=== PATIENT | male | born 1960 | race American Indian/Alaskan Native ===

== ENCOUNTER 2021-11-16 19:08 | Emergency (ER) | payer OTHER, BC ==
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
[2021-11-16] MEDS: HYDROcodone/ACETAMINOPHEN 5-325 MG TAB PO ONE (22:40)
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
[2021-11-16 23:50] VITALS: BP 146/69
== END 2021-11-16 23:41 | disposition home or self-care (01) ==
LOC: EDBD → ED 19:08
DX: S16.1XXA Strain of muscle, fascia and tendon at neck level, initial encounter (principal); S39.012A Strain of muscle, fascia and tendon of lower back, initial encounter; Z79.899 Other long term (current) drug therapy; V87.7XXA Person injured in collision between other specified motor vehicles (traffic), initial encounter; Y93.89 Activity, other specified; Y92.488 Other paved roadways as the place of occurrence of the external cause; Y99.8 Other external cause status
CPT/HCPCS: 72040; 72100; 99283

== ENCOUNTER 2021-11-22 09:20 | Inpatient (IN) | payer BC, OTHER ==
--- NOTE | 2021-11-22 09:51 | Cat Scan Report ---
CT HEAD WITHOUT CONTRAST INDICATION / CLINICAL INFORMATION: CODE STROKE CALL [phone]. TECHNIQUE: Axial imaging performed from the skull apex through the skull base without the use of cont rast. Sagittal and coronal reformatted images. All CT scans at this location are performed using CT dose reduction for ALARA by means of automated exposure control. COMPARISON: None available FINDINGS: CEREBRAL PARENCHYMA: No acute parenchymal abnormality is detected. The hdez-white interface is preser manuel. There appear to be 2 small chronic cortical infarcts on the right side involving the precentral and postcentral gyri measuring up to 1 cm. No definite acute ischemia. Minimal chronic white matter c hanges are noted bilaterally. The proximal left MCA is slightly hyperdense on axial image 15 but this is thought to be secondary to streak artifact at this level. HEMORRHAGE: None. EXTRA-AXIAL SPACES: Normal in size and morphology for the patient's age. VENTRICULAR SYSTEM: Normal in size and morphology for the patient's age. MIDLINE SHIFT OR HERNIATION: None. CEREBELLUM / BRAINSTEM: No significant abnormality. CALVARIUM: No significant abnormality. ORBITS: Normal as visualized. PARANASAL SINUSES / MASTOID AIR CELLS: Normal as visualized. SOFT TISSUES of HEAD: No significant abnormality. ADDITIONAL FINDINGS: None. IMPRESSION: No evidence for hemorrhage or acute parenchymal abnormality. Small chronic cortical infarcts in the r ight MCA distribution involving the precentral and postcentral gyri as described. Questionable minimal hyperdensity of the proximal left MCA on image 14 is thought to be artifactual. If further evaluation is needed CTA head could be obtained. Please correlate with the patient's clini jean presentation. CODE STROKE: Time of Communication (POWDER MIXER/CDT): 0844 hours Licensed Practitioner Receiving Report: Dr. English Signer Name: Thomas Canseco Jr, MD Signed: 11/22/2021 9:47 AM Workstation Name: [id number]
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
--- NOTE | 2021-11-22 10:30 | Cat Scan Report ---
CT angio neck, CT angio head HISTORY: cva 100 ML OMNI 350 COMPARISON: CT head from earlier same day TECHNIQUE: CTA of the neck and head is performed after IV contrast. 3-D/MIP reformats were postproces sed. Percentage stenosis is determined by direct quantitative measurements of diseased internal bernardo tid artery diameter compared with normal distal internal carotid artery reference segments or by crit eria similar to NASCET where applicable. All CT scans at this location are performed using CT dose re duction for ALARA by means of automated exposure control. FINDINGS: CTA NECK: Aortic arch: 2 vessel aortic arch, normal variant. Cervical vertebral arteries: No occlusion or hemodynamically significant stenosis. Common Carotid arteries: No occlusion or hemodynamically significant stenosis. Internal carotid arteries: No occlusion or hemodynamically significant stenosis. CTA HEAD: Intracranial internal carotid arteries: High-grade stenosis near occlusion in the cavernous segment o f the right internal carotid artery. Anterior cerebral arteries: No occlusion or significant stenosis. Middle cerebral arteries: No occlusion or significant stenosis. Intracranial vertebral arteries: No occlusion or significant stenosis. Basilar artery: No occlusion or significant stenosis. Posterior cerebral arteries: No occlusion or significant stenosis. No aneurysm. Additional findings: None. IMPRESSION: 1. CTA NECK: No occlusion or significant stenosis of the carotid or vertebral arteries. 2. CTA HEAD: Atherosclerosis with near occlusion of the cavernous segment of the right internal carot id artery. Signer Name: Amor Best MD Signed: 11/22/2021 10:25 AM Workstation Name: [id number]
--- NOTE | 2021-11-22 10:40 | XRay Report ---
XR chest 1V ap INDICATION / CLINICAL INFORMATION: Stroke COMPARISON: None available. FINDINGS: SUPPORT DEVICES: None. HEART / MEDIASTINUM: No significant abnormality. LUNGS / PLEURA: Lungs are clear. Costophrenic sulci are sharp. No pneumothorax. ADDITIONAL FINDINGS: No significant additional findings. IMPRESSION: 1. No acute findings. Signer Name: Amor Best MD Signed: 11/22/2021 10:36 AM Workstation Name: [id number]
[2021-11-22 10:59] LABS: Basophils # (Auto) 0.1 K/mm3 (0.0-0.1); Basophils % (Auto) 0.9 % (0.0-1.8); Eosinophils # (Auto) 0.1 K/mm3 (0.0-0.4); Eosinophils % (Auto) 1.7 % (0.0-4.3); Hematocrit 41.5 % (35.5-45.6); Hemoglobin 13.9 gm/dl (11.8-15.2); Lymphocytes # (Auto) 1.7 K/mm3 (1.2-5.4); Lymphocytes % (Auto) 25.4 % (13.4-35.0); Mean Corpuscular HGB Conc 33 % (32-34); Mean Corpuscular Volume 79 fl (84-94); Monocytes # (Auto) 0.8 K/mm3 (0.0-0.8); Monocytes % (Auto) 11.4 % (0.0-7.3); Platelet Count 209 K/mm3 (140-440); Red Blood Count 5.24 M/mm3 (3.65-5.03); Red Cell Distribution Width 14.3 % (13.2-15.2)
[2021-11-22 11:08] LABS: Partial Thromboplastin Time 28.1 Sec. (24.2-36.6)
[2021-11-22 11:13] LABS: INR 1.03 (0.87-1.13)
[2021-11-22 11:18] LABS: Bilirubin,Urine NEG (Negative); Blood,Urine NEG (Negative); Color,Urine Yellow (Yellow); Mucus,Urine FEW /HPF; Protein,Urine <15 mg/dL mg/dL (Negative); Urobilinogen,Urine < 2.0 mg/dL (<2.0)
[2021-11-22] MEDS ORDERED: HYDROmorphone 1 MG/1 ML INJ IV PRN (11:18)
[2021-11-22] MEDS ORDERED: METOCLOPRAMIDE 10 MG TAB PO PRN (11:18)
[2021-11-22] MEDS ORDERED: oxyCODONE /ACETAMINOPHEN 5-325MG TAB PO PRN (11:18)
[2021-11-22] MEDS ORDERED: PROMETHAZINE 25 MG RECT SUPP PR PRN (11:18)
[2021-11-22] MEDS ORDERED: MAGNESIUM HYDROXIDE (MOM) ORAL LIQD UDC PO PRN (11:18)
[2021-11-22] MEDS ORDERED: ONDANSETRON 4 MG/2 ML INJ IV PRN (11:18)
[2021-11-22] MEDS ORDERED: ACETAMINOPHEN 325 MG TAB PO PRN (11:18)
[2021-11-22] MEDS ORDERED: ALBUTEROL 2.5 MG/3 ML NEBU IH PRN (11:18)
[2021-11-22] MEDS ORDERED: CYCLOBENZAPRINE 10 MG TAB PO PRN (11:20)
--- NOTE | 2021-11-22 11:21 | History and Physical Report ---
History of Present Illness Chief complaint: My left side is weak and my speech is slurred History of present illness: 61 YO male with DM, Obesity Hypoventilation Syndrome, Metabolic Syndrome presents ED for evaluation. Patient reports "my left side is numb and my speech is slurred". Patient states that he was in his usual state of health at bedtime around 2200 hrs. Patient states that he awoke from sleep around 0500 hrs. and was found to have left-sided weakness as well as slurred speech. EMS was notified and upon arrival the patient was found to be in distress with a focal neurologic deficit. A code stroke was called and the patient was transported to [facility] for further care and evaluation of the aforementioned symptoms. The patient was seen and evaluated in the emergency department. All lab and imaging studies reviewed. Patient found to have a focal neurologic deficit as well as concomitant systems consistent with CVA. The patient was admitted to telemetry and initiated on CVA protocol. Telemetry neurology was consulted. Patient has fever, chills, chest pain, palpitation, productive cough, skin rash, trauma, recent ill contact, known exposure to COVID-19. No prior admission for review. All medication listed at time of admission has been reconciled. Advanced care planning conducted in ED. Past History Past Medical History: diabetes, other (See HPI) Past Surgical History: No surgical history, Other (Reviewed) Social history: , lives with family. denies: smoking, alcohol abuse, prescription drug abuse Family history: diabetes, hypertension Medications and Allergies Allergies Allergy/AdvReac Type Severity Reaction Status Date / Time No Known Allergies Allergy Verified 11/22/21 09:27 Home Medications Medication Instructions Recorded Confirmed Last Taken Type Acetaminophen [Acetaminophen TAB] 1,000 mg PO Q6HR PRN #30 tablet 11/16/21 11/22/21 Unknown Rx Cyclobenzaprine [Flexeril] 10 mg PO BID PRN #10 tab 11/16/21 11/22/21 11/21/21 22:00 Rx Menthol/Camphor [[place] 1 applicatio TP Q6H PRN #1 tube 11/16/21 11/22/21 Unknown Rx Ointment] Insulin Glargine [Lantus VIAL] 18 unit SQ QAM 11/22/21 11/22/21 11/21/21 22:00 History Insulin Lispro [Humalog] 1 - 6 unit SQ QID 11/22/21 11/22/21 Unknown History Lancets [Accu-Chek Softclix] TP TID 11/22/21 Unknown History Rabeprazole Sodium [Aciphex] 20 mg PO 11/22/21 11/21/21 07:00 History Active Meds: Active Medications Acetaminophen (Acetaminophen 325 Mg Tab) 650 mg PO Q4H PRN PRN Reason: Pain, Mild (1-3) Albuterol (Albuterol 2.5 Mg/3 Ml Nebu) 2.5 mg IH Q3HRT PRN PRN Reason: Shortness Of Breath Aspirin (Aspirin 325 Mg Tab) 325 mg PO QDAY JO ANN Atorvastatin Calcium (Atorvastatin 40 Mg Tab) 40 mg PO QHS JO ANN Bisacodyl (Bisacodyl 10 Mg Rect Supp) 10 mg HI QDAY PRN PRN Reason: Constipation Cyclobenzaprine HCl (Cyclobenzaprine 10 Mg Tab) 10 mg PO BID PRN PRN Reason: Muscle Spasm Hydromorphone HCl (Hydromorphone 1 Mg/1 Ml Inj) 0.5 mg IV Q23H PRN PRN Reason: Pain , Severe (7-10) Magnesium Hydroxide (Magnesium Hydroxide (Mom) Oral Liqd Udc) 30 ml PO Q4H PRN PRN Reason: Constipation Metoclopramide HCl (Metoclopramide 10 Mg Tab) 10 mg PO Q6H PRN PRN Reason: Nausea And Vomiting Miscellaneous Medication (Rabeprazole Sodium [Aciphex]) 20 mg PO DAILY ON LICENSE OF [facility] Ondansetron HCl (Ondansetron 4 Mg/2 Ml Inj) 4 mg IV Q8H PRN PRN Reason: Nausea And Vomiting Oxycodone/Acetaminophen (Oxycodone /Acetaminophen 5-325mg Tab) 1 tab PO Q16H PRN PRN Reason: Pain, Moderate (4-6) Promethazine HCl (Promethazine 25 Mg Rect Supp) 25 mg HI Q6H PRN PRN Reason: Nausea And Vomiting Sodium Chloride (Sodium Chloride 0.9% 10 Ml Flush Syringe) 10 ml INJ PRN PRN PRN Reason: LINE FLUSH Review of Systems Constitutional: no weight loss, no fever Ears, nose, mouth and throat: no ear pain, no tinnitis, no decreased hearing, no nose pain, no sinus pressure Cardiovascular: no chest pain, no orthopnea, no edema, no lightheadedness Respiratory: no cough, no cough with sputum, no excessive sputum, no hemoptysis Gastrointestinal: no abdominal pain, no nausea, no diarrhea, no constipation, no change in bowel habits, no hematemesis Genitourinary Male: no dysuria, no hematuria, no discharge, no nocturia, no er ectile dysfunction Rectal: no pain, no bleeding Musculoskeletal: no neck stiffness, no neck pain Integumentary: no rash, no jaundice Neurological: lack of coordination, change in speech, gait dysfunction, motor disturbance, no head injury, no transient paralysis, no paralysis, no seizures, no syncope Psychiatric: no anxiety, no memory loss, no change in sleep habits, no sleep disturbances, no hypersomnia, no change in libido, no suicidal ideation, no disorientation Endocrine: no cold intolerance, no heat intolerance, no polyphagia, no excessive thirst, no polydipsia, no excessive sweating, no flushing Hematologic/Lymphatic: no easy bruising, no easy bleeding Allergic/Immunologic: no urticaria, no allergic rhinitis Exam - Constitutional Vitals: Temp Pulse Resp BP Pulse Ox 98.6 F 98 H 16 156/79 97 11/22/21 10:40 11/22/21 10:40 11/22/21 10:27 11/22/21 10:40 11/22/21 10:40 General appearance: Present: mild distress - EENT Eyes: Present: PERRL ENT: hearing intact, clear oral mucosa - Neck Neck: Present: supple, normal ROM - Respiratory Respiratory effort: normal Respiratory: bilateral: CTA - Cardiovascular Heart Sounds: Present: S1 & S2. Absent: rub, click - Extremities Extremities: pulses symmetrical, No edema Peripheral Pulses: within normal limits - Abdominal General gastrointestinal: Present: soft, non-tender, non-distended, normal bowel sounds Male genitourinary: Present: normal - Integumentary Integumentary: Present: clear, warm, dry - Musculoskeletal Musculoskeletal: left sided weakness - Psychiatric Psychiatric: appropriate mood/affect, intact judgment & insight - Neurologic Neurologic: CNII-XII intact, moves all extremities, no gait normal Results - Labs CBC & Chem 7: 11/22/21 10:20 11/22/21 10:20 Labs: Abnormal lab results 11/22/21 11/22/21 Range/Units 10:20 10:32 RBC 5.24 H (3.65-5.03) M/mm3 MCV 79 L (84-94) fl MCH 27 L (28-32) pg [place] % (Auto) 11.4 H (0.0-7.3) % POC Glucose 106 H (70-105) mg/dL Assessment and Plan - Patient Problems (1) CVA (cerebral vascular accident) Current Visit: Yes Status: Acute Plan to address problem: CVA protocol: CT head, neuro check, seizure precautions, aspiration precautions, lipid panel, statin therapy, telemetry neurology consulted, echocardiogram, carotid Doppler, dual antiplatelet therapy, risk factor reduction, (2) Obesity hypoventilation syndrome Current Visit: Yes Status: Acute Plan to address problem: Balanced diet, increase physical activity discharge, outpatient pulmonary follow-up for sleep study. (3) Metabolic syndrome Current Visit: Yes Status: Acute Plan to address problem: Supportive care, weight factor reduction, low-cholesterol diet. (4) DVT prophylaxis Current Visit: Yes Status: Acute Plan to address problem: SCDs bilateral lower extremities while in bed (5) Advance care planning Current Visit: Yes Status: Acute Plan to address problem: Disease education conducted, care plan discussed, diagnoses discussed, prognosis discussed, patient is full code, patient knowledges understanding and agreement with care plan, +30 minutes.
[2021-11-22 11:22] LABS: Alanine Aminotransferase 24 units/L (7-56); Albumin 3.9 g/dL (3.9-5); BUN/Creatinine Ratio 11; Blood Urea Nitrogen 10 mg/dL (9-20); Calcium 9.3 mg/dL (8.4-10.2); Hemolysis Index 20
[2021-11-22] MEDS ORDERED: DEXTROSE 50% IN WATER (25GM) 50 ML SYRINGE IV PRN (11:22)
[2021-11-22 11:30] LABS: Amphetamine Screen,Urine Negative; Benzodiazepines Screen,Urine Negative; Cannabinoid Screen,Urine Negative; Cocaine Screen,Urine Negative; Methadone Screen,Urine Negative; Opiate Screen,Urine Negative
[2021-11-22] MEDS: INSULIN LISPRO 100 UNIT/ML SUB-Q SCH ×2 (13:40→18:58)
[2021-11-22] MEDS: PANTOPRAZOLE 40 MG TAB PO SCH (13:57)
--- NOTE | 2021-11-22 13:58 | Vascular Lab Report ---
DUPLEX DOPPLER ULTRASOUND CAROTID, BILATERAL INDICATION / CLINICAL INFORMATION: stroke. COMPARISON: CTA neck performed today. FINDINGS: RIGHT CAROTID: Moderate intimal thickening. Mild atherosclerotic plaque. Dampened ICA velocities. - PLAQUE ESTIMATE (%): < 50% - CCA velocity: 118 cm/sec. - ICA peak systolic velocity: 50 cm/sec. - ICA/CCA PSV Ratio: Less than 2. Right Vertebral Artery: Antegrade flow. LEFT CAROTID: Mild atherosclerotic plaque. Moderate intimal thickening. - PLAQUE ESTIMATE (%): < 50% - CCA velocity: 121 cm/sec. - ICA peak systolic velocity: 121 cm/sec. - ICA/CCA PSV Ratio: 1.0 Left Vertebral Artery: Antegrade flow. IMPRESSION: 1. Right Internal Carotid Artery: Dampened velocities consistent with stenosis distal to visualized p ortions of ICA, as seen on CT performed today. 2. Left Internal Carotid Artery: Less than 50% diameter stenosis. Velocity criteria are extrapolated from diameter data as defined by the Society of Radiologists in Ul trasound Consensus Conference, Radiology 2003; 229;340-346. NO STENOSIS (NORMAL) - Plaque = none; ICA PSV < 125 cm/sec; ICA/CCA PSV Ratio < 2.0 <50% STENOSIS - Plaque < 50%; ICA PSV < 125 cm/sec; ICA/CCA PSV Ratio < 2.0 50-69% STENOSIS - Plaque > 50%; ICA PSV = 125-230 cm/sec; ICA/CCA PSV Ratio = 2.0-4.0 >70% BUT <100% STENOSIS - Plaque > 50%; ICA PSV > 230 cm/sec; ICA/CCA PSV Ratio > 4.0 NEAR OCCLUSION - Plaque = visible lumen; ICA PSV = high/low/none; ICA/CCA PSV Ratio = variable TOTAL OCCLUSION - Plaque = no lumen; ICA PSV = none; ICA/CCA PSV Ratio = N/A Scribed by: Hortencia Coello RDMS, EFRAÍNT, CRISTINA Scribed: 11/22/2021 12:25 PM I have reviewed the images, agree with this report, and edited this report as needed. Signer Name: Ish Amaya MD Signed: 11/22/2021 1:54 PM Workstation Name: [id number]
[2021-11-22] MEDS: CLOPIDOGREL 75 MG TAB PO SCH (16:17)
--- NOTE | 2021-11-22 20:37 | Cat Scan Report ---
CT BRAIN: 11/22/2021, 1952 hours INDICATION / CLINICAL INFORMATION: stroke. Altered mental status COMPARISON: CT brain 11/22/2021, 0912 hours FINDINGS: BRAIN/INTRACRANIAL STRUCTURES: There is a 3.5 cm area of decreased attenuation present in the right c entral parietal cortex, consistent with evolving ischemic injury in the territory of a branch vessel of the distal right MCA. These changes were not visible on the earlier exam. There is no evidence of associated hemorrhage. No other areas of ischemic change are noted. Normal age-related atrophic changes are present. There is no evidence of hemorrhage or mass. There are no abnormal extra-axial fluid collection. EXTRACRANIAL STRUCTURES: Unremarkable. IMPRESSION: Involving right partial MCA distribution infarct. No evidence of hemorrhage. All CT scans at this location are performed using dose reduction to ALARA by means of automated expos ure control. Signer Name: Janusz Romero MD Signed: 11/22/2021 8:32 PM Workstation Name: [id number]
[2021-11-23] MEDS ORDERED: RABEPRAZOLE SODIUM 20 MG PO SCH (10:00)
[2021-11-23] MEDS ORDERED: CLOPIDOGREL 75 MG TAB PO SCH (10:00)
[2021-11-23] MEDS ORDERED: ASPIRIN 325 MG TAB PO SCH (10:00)
--- NOTE | 2021-11-23 12:24 | Consultation ---
History of Present Illness Consult date: 11/23/21 Reason for Consult: new onset left side numbness and slurred speech History of present illness: My left side is weak and my speech is slurred History of present illness: 61 YO male with DM, Obesity Hypoventilation Syndrome, Metabolic Syndrome presents ED for evaluation. Patient reports "my left side is numb and my speech is slurred". Patient states that he was in his usual state of health at bedtime around 2200 hrs. Patient states that he awoke from sleep around 0500 hrs. and was found to have left-sided weakness as well as slurred speech. EMS was notified and upon arrival the patient was found to be in distress with a focal neurologic deficit. A code stroke was called and the patient was transported to [facility] for further care and evaluation of the aforementioned symptoms. The patient was seen and evaluated in the emergency department. All lab and imaging studies reviewed. Patient found to have a focal neurologic deficit as well as concomitant systems consistent with CVA. The patient was admitted to telemetry and initiated on CVA protocol. Telemetry neurology was consulted. Patient has fever, chills, chest pain, palpitation, productive cough, skin rash, trauma, recent ill contact, known exposure to COVID-19. No prior admission for review. All medication listed at time of admission has been reconciled. Advanced care planning conducted in ED. Neurology consulted today due to above NIH last night was #0 Ct brain initial is remarkable for possible remote right MCA infarct Ct repeat today showed possible evolving acute CVA right parietal region CTA showed almost complete occlusion right ICA at cavernous segment , -US carotid is <50% bilateral echo is with EF#60-65% with mild impaired relaxation Past History Past Medical History: diabetes, other (See HPI) hx of peripheral vascular disease s/p stent Past Surgical History: No surgical history, Other (Reviewed) Social history: , lives with family. denies: smoking, alcohol abuse, prescription drug abuse Family history: diabetes, hypertension Medications and Allergies Allergies Allergy/AdvReac Type Severity Reaction Status Date / Time No Known Allergies Allergy Verified 11/22/21 09:27 Home Medications Medication Instructions Recorded Confirmed Last Taken Type Acetaminophen [Acetaminophen TAB] 1,000 mg PO Q6HR PRN #30 tablet 11/16/21 11/22/21 Unknown Rx Cyclobenzaprine [Flexeril] 10 mg PO BID PRN #10 tab 11/16/21 11/22/21 11/21/21 22:00 Rx Menthol/Camphor [[place] 1 applicatio TP Q6H PRN #1 tube 11/16/21 11/22/21 Unknown Rx Ointment] Insulin Glargine [Lantus VIAL] 18 unit SQ QAM 11/22/21 11/22/21 11/21/21 22:00 History Insulin Lispro [Humalog] 1 - 6 unit SQ QID 11/22/21 11/22/21 Unknown History Lancets [Accu-Chek Softclix] TP TID 11/22/21 Unknown History Rabeprazole Sodium [Aciphex] 20 mg PO 11/22/21 11/21/21 07:00 History Active Meds: Active Medications Acetaminophen (Acetaminophen 325 Mg Tab) 650 mg PO Q4H PRN PRN Reason: Pain, Mild (1-3) Albuterol (Albuterol 2.5 Mg/3 Ml Nebu) 2.5 mg IH Q3HRT PRN PRN Reason: Shortness Of Breath Aspirin (Aspirin 325 Mg Tab) 325 mg PO QDAY JO ANN Atorvastatin Calcium (Atorvastatin 40 Mg Tab) 40 mg PO QHS JO ANN Bisacodyl (Bisacodyl 10 Mg Rect Supp) 10 mg [place] QDAY PRN PRN Reason: Constipation Cyclobenzaprine HCl (Cyclobenzaprine 10 Mg Tab) 10 mg PO BID PRN PRN Reason: Muscle Spasm Hydromorphone HCl (Hydromorphone 1 Mg/1 Ml Inj) 0.5 mg IV Q23H PRN PRN Reason: Pain , Severe (7-10) Magnesium Hydroxide (Magnesium Hydroxide (Mom) Oral Liqd Udc) 30 ml PO Q4H PRN PRN Reason: Constipation Metoclopramide HCl (Metoclopramide 10 Mg Tab) 10 mg PO Q6H PRN PRN Reason: Nausea And Vomiting Miscellaneous Medication (Rabeprazole Sodium [Aciphex]) 20 mg PO DAILY JO ANN Ondansetron HCl (Ondansetron 4 Mg/2 Ml Inj) 4 mg IV Q8H PRN PRN Reason: Nausea And Vomiting Oxycodone/Acetaminophen (Oxycodone /Acetaminophen 5-325mg Tab) 1 tab PO Q16H PRN PRN Reason: Pain, Moderate (4-6) Promethazine HCl (Promethazine 25 Mg Rect Supp) 25 mg OH Q6H PRN PRN Reason: Nausea And Vomiting Sodium Chloride (Sodium Chloride 0.9% 10 Ml Flush Syringe) 10 ml INJ PRN PRN PRN Reason: LINE FLUSH Review of Systems Constitutional: no weight loss, no fever Ears, nose, mouth and throat: no ear pain, no tinnitis, no decreased hearing, no nose pain, no sinus pressure Cardiovascular: no chest pain, no orthopnea, no edema, no lightheadedness Respiratory: no cough, no cough with sputum, no excessive sputum, no hemoptysis Gastrointestinal: no abdominal pain, no nausea, no diarrhea, no constipation, no change in bowel habits, no hematemesis Genitourinary Male: no dysuria, no hematuria, no discharge, no nocturia, no erectile dysfunction Rectal: no pain, no bleeding Musculoskeletal: no neck stiffness, no neck pain Integumentary: no rash, no jaundice Neurological: lack of coordination, change in speech, gait dysfunction, motor disturbance, no head injury, no transient paralysis, no paralysis, no seizures, no syncope Psychiatric: no anxiety, no memory loss, no change in sleep habits, no sleep disturbances, no hypersomnia, no change in libido, no suicidal ideation, no disorientation Endocrine: no cold intolerance, no heat intolerance, no polyphagia, no excessive thirst, no polydipsia, no excessive sweating, no flushing Hematologic/Lymphatic: no easy bruising, no easy bleeding Allergic/Immunologic: no urticaria, no allergic rhinitis Past History Past Medical History: diabetes, hypertension, hyperlipidemia, other (See HPI) Past Surgical History: No surgical history, Other (Reviewed) Social history: , lives with family. denies: smoking, alcohol abuse, prescription drug abuse Family history: diabetes, hypertension Medications and Allergies Allergies Allergy/AdvReac Type Severity Reaction Status Date / Time No Known Allergies Allergy Verified 11/23/21 10:35 Home Medications Medication Instructions Recorded Confirmed Last Taken Type Acetaminophen [Acetaminophen TAB] 1,000 mg PO Q6HR PRN #30 tablet 11/16/21 11/23/21 Unknown Rx Cyclobenzaprine [Flexeril] 10 mg PO BID PRN #10 tab 11/16/21 11/23/21 Unknown Rx Menthol/Camphor [[place] 1 applicatio TP Q6H PRN #1 tube 11/16/21 11/23/21 Unknown Rx Ointment] Insulin Glargine [Lantus VIAL] 18 unit SQ QAM 11/22/21 11/23/21 Unknown History Insulin Lispro [Humalog] 1 - 6 unit SQ QID 11/22/21 11/23/21 Unknown History Rabeprazole Sodium [Aciphex] 20 mg PO QDAY 11/22/21 11/23/21 Unknown History Olmesartan Medoxomil 40 mg PO QDAY 11/23/21 11/23/21 Unknown History Active Meds: Active Medications Acetaminophen (Acetaminophen 325 Mg Tab) 650 mg PO Q4H PRN PRN Reason: Pain, Mild (1-3) Albuterol (Albuterol 2.5 Mg/3 Ml Nebu) 2.5 mg IH Q3HRT PRN PRN Reason: Shortness Of Breath Aspirin (Aspirin 325 Mg Tab) 325 mg PO QDAY [facility] Atorvastatin Calcium (Atorvastatin 40 Mg Tab) 40 mg PO QHS [facility] Last Admin: 11/22/21 21:32 Dose: Not Given Bisacodyl (Bisacodyl 10 Mg Rect Supp) 10 mg OH QDAY PRN PRN Reason: Constipation Clopidogrel Bisulfate (Clopidogrel 75 Mg Tab) 75 mg PO QDAY [facility] Last Admin: 11/22/21 16:17 Dose: 75 mg Cyclobenzaprine HCl (Cyclobenzaprine 10 Mg Tab) 10 mg PO BID PRN PRN Reason: Muscle Spasm Dextrose (Dextrose 50% In Water (25gm) 50 Ml Syringe) 50 ml IV Q30MIN PRN; Protocol PRN Reason: Hypoglycemia Hydromorphone HCl (Hydromorphone 1 Mg/1 Ml Inj) 0.5 mg IV Q23H PRN PRN Reason: Pain , Severe (7-10) Last Admin: 11/23/21 04:16 Dose: 0.5 mg Insulin Human Lispro (Insulin Lispro 100 Unit/Ml) 0 unit SUB-Q [facility]; Protocol Last Admin: 11/22/21 18:58 Dose: Not Given Magnesium Hydroxide (Magnesium Hydroxide (Mom) Oral Liqd Udc) 30 ml PO Q4H PRN PRN Reason: Constipation Metoclopramide HCl (Metoclopramide 10 Mg Tab) 10 mg PO Q6H PRN PRN Reason: Nausea And Vomiting Ondansetron HCl (Ondansetron 4 Mg/2 Ml Inj) 4 mg IV Q8H PRN PRN Reason: Nausea And Vomiting Oxycodone/Acetaminophen (Oxycodone /Acetaminophen 5-325mg Tab) 1 tab PO Q16H PRN PRN Reason: Pain, Moderate (4-6) Last Admin: 11/22/21 13:59 Dose: 1 tab Pantoprazole Sodium (Pantoprazole 40 Mg Tab) 40 mg PO DAILY JO ANN Last Admin: 11/22/21 13:57 Dose: 40 mg Promethazine HCl (Promethazine 25 Mg Rect Supp) 25 mg OH Q6H PRN PRN Reason: Nausea And Vomiting Sodium Chloride (Sodium Chloride 0.9% 10 Ml Flush Syringe) 10 ml IV PRN PRN PRN Reason: LINE FLUSH Physical Examination - Vital Signs Vital Signs: Vital Signs Temp Pulse Resp BP Pulse Ox 98.6 F 106 H 16 156/79 99 11/22/21 10:27 11/22/21 10:27 11/22/21 10:27 11/22/21 10:27 11/22/21 10:27 - Constitutional General appearance: comfortable - EENT EENT: Present: PERRL, mucous membranes moist - Respiratory Respiratory: Present: lungs clear, rhonchi - Cardiovascular Cardiovascular: Present: regular rate, normal S1, normal S2 Extremities: Present: no peripheral edema bilatateraly, no clubbing, cyanosis - Gastrointestinal Gastrointestinal: Present: normoactive bowel sounds - Integumentary Integumentary: Present: normal - Neurologic Cranial nerve examination: PERRL, EOMI, facial droop, other (left visual field neglect , and left facial droop, sensation is intact) Speech examination: intact Sensorimotor examination: intact, hemiparesis Detailed motor examination: other (dense weakness left upper 1/5 , intact sensation and reflexes, left lower is 4/5 , gait not done) - Level of Consciousness 1a. Level of Consciousness: alert/keenly responsive - LOC Questions 1b. LOC Questions: answers both correctly - LOC Command 1c. LOC Commands: performs tasks correctly - Best Gaze 2. Best Gaze: normal - Visual 3. Visual: partial hemianopia - Facial Palsy 4. Facial Palsy: partial paralysis - Motor Arm 5a. Motor Arm Left: no movement 5b. Motor Arm Right: no drift - Motor Leg 6a. Motor Leg Left: no drift 6b. Motor Leg Right: no drift - Limb Ataxia 7. Limb Ataxia: absent - Sensory 8. Sensory: normal - Best Language 9. Best Language: no aphasia - Dysarthria 10. Dysarthria: normal - Extinction and Inattention 11. Extinction/Inattention: no abnormality - Scoring Total Score: 7 Stroke Severity: Moderate Stroke Results - Laboratory Findings CBC and BMP: 11/22/21 10:20 11/22/21 10:20 Abnormal Lab Findings: Abnormal Labs 11/22/21 11/22/21 11/22/21 10:20 10:20 10:32 RBC 5.24 H MCV 79 L MCH 27 L [place] % (Auto) 11.4 H Glucose 107 H POC Glucose 106 H Ur Specific [place] 11/22/21 11/22/21 11/23/21 11:05 16:42 08:12 RBC MCV MCH [place] % (Auto) Glucose POC Glucose 107 H 112 H Ur Specific [place] 1.041 H Assessment and Plan Assessment and Plan 61 YO male with DM, Obesity Hypoventilation Syndrome, Metabolic Syndrome presents ED for evaluation. Patient reports "my left side is numb and my speech is slurred". Patient states that he was in his usual state of health at bedtime around 2200 hrs. Patient states that he awoke from sleep around 0500 hrs. and was found to have left-sided weakness as well as slurred speech - Patient Problems # new onset left side weakness with left visual neglect and left Upper weakness -findings is suggestive of CVA in evolution -Initial NIH was#0 last night -- today NIh#7 -CT brain inital is remarkable for remote right MCA infarct -repeat CT brain showed evolving MCA right side infarct -parietal -CTA brain and neck is remarkable for almost complet occlusion of right ICA at cavernous segment -cardiac monitoring -Neuro check q shift - Pt. started on dual antiplatletes ASA plus Plavix -lipitor 40 mg -US carotid showed< 50% stenosis bilateral -echo 60-65% EF with mild impaired relaxation -MRI brain is pending -LDL is pending -A1C is pending # Hx of HTN - allow for permissive HTN for 24hours then gradual decrease to 150/80 # HLP -lipid profile is pending -started on Lipitor 40 mg #Hx of peripheral vascualr disease -Bilateral lower ext. -s/p stent left leg -was on ASA and Lipitor at home until recently # Obesity hypoventilation syndrome -Balanced diet, increase physical activity discharge, outpatient pulmonary foll ow-up for sleep study. # DVT prophylaxis -SCDs bilateral lower extremities while in bed # Advance care planning -Disease education conducted, care plan discussed, diagnoses discussed, prognosis discussed, patient is full code, patient knowledges understanding and agreement with care plan, will follow
--- NOTE | 2021-11-23 12:44 | Progress Note ---
Subjective Date of service: 11/23/21 Interval history: My left side is weak and my speech is slurred History of present illness: 61 YO male with DM, Obesity Hypoventilation Syndrome, Metabolic Syndrome presents ED for evaluation. Patient reports "my left side is numb and my speech is slurred". Patient states that he was in his usual state of health at bedtime around 2200 hrs. Patient states that he awoke from sleep around 0500 hrs. and was found to have left-sided weakness as well as slurred speech. EMS was notified and upon arrival the patient was found to be in distress with a focal neurologic deficit. A code stroke was called and the patient was transported to [facility] for further care and evaluation of the aforementioned symptoms. The patient was seen and evaluated in the emergency department. All lab and imaging studies reviewed. Patient found to have a focal neurologic deficit as well as concomitant systems consistent with CVA. The patient was admitted to telemetry and initiated on CVA protocol. Telemetry neurology was consulted. Patient has fever, chills, chest pain, palpitation, productive cough, skin rash, trauma, recent ill contact, known exposure to COVID-19. No prior admission for review. All medication listed at time of admission has been reconciled. Advanced care planning conducted in ED. 11/23 patient is awake and alert and oriented. Offers no specific complaints. Denies headache or dizziness. Denies chest pain or shortness of breath. Denies fever or chills. Lab results reviewed. CT head and CTA head and neck results reviewed. MRI ordered. Echo ordered. Neurology consulted and discussed with Dr. Loera Assessment and plan 1. Acute ischemic stroke involving the intracranial portion of right ICA with left upper extremity paresis Continue DAPT Telemetry Echo results reviewed EF normal Mild diastolic dysfunction No bubble contrast echo was done-PFO cannot be assessed Carotid Doppler artery results reviewed CT angiogram of head and neck results reviewed MRI brain ordered-pending PT//OT/speech therapy evaluation pending N.p.o. until cleared by speech therapy 2. Type 2 diabetes Check A1c Continue insulin sliding scale coverage Accu-Cheks reviewed History of OHS Outpatient follow-up with pulmonary for sleep study Obesity class II Counseling regarding diet, exercise and weight loss was done Objective - Constitutional Vitals: Vital Signs - 12hr 11/23/21 11/23/21 11/23/21 02:00 03:25 04:55 Temperature 99.2 F Pulse Rate 97 H Respiratory 17 Rate Respiratory 18 Rate [Head] Blood Pressure 141/68 O2 Sat by Pulse 94 98 Oximetry 11/23/21 11/23/21 11/23/21 08:00 08:10 08:33 Temperature 98.3 F Pulse Rate 110 H 94 H Respiratory 18 Rate Respiratory Rate [Head] Blood Pressure 138/90 O2 Sat by Pulse 99 98 Oximetry General appearance: Present: no acute distress, well-nourished - EENT Eyes: PERRL, EOM intact ENT: hearing intact, clear oral mucosa - Neck Neck: supple, normal ROM - Respiratory Respiratory effort: normal Respiratory: bilateral: CTA - Cardiovascular Rhythm: regular Heart Sounds: Present: S1 & S2 Extremities: No edema - Gastrointestinal General gastrointestinal: Present: soft, non-tender Rectal Exam: deferred - Genitourinary Male genitourinary: deferred - Integumentary Integumentary: clear - Musculoskeletal Musculoskeletal: left sided weakness - Neurologic Neurologic: focal deficits, other ( left upper extremity is flaccid, moves all other extremities ,right gaze preference ) - Psychiatric Psychiatric: appropriate mood/affect - Labs CBC & Chem 7: 11/22/21 10:20 11/22/21 10:20 Labs: Abnormal lab results 11/22/21 11/23/21 11/23/21 Range/Units 16:42 08:12 11:32 POC Glucose 107 H 112 H 127 H (70-105) mg/dL HEART Score - HEART Score Troponin: Troponin T < 0.010 ng/mL (0.00-0.029) 11/22/21 10:20
[2021-11-23] MEDS: INSULIN LISPRO 100 UNIT/ML SUB-Q SCH ×3 (13:25→18:27)
[2021-11-23] MEDS ORDERED: ASPIRIN 81 MG TAB CHEW ONE (14:28)
[2021-11-23] MEDS: PANTOPRAZOLE 40 MG TAB PO SCH (14:31)
[2021-11-23] MEDS: CLOPIDOGREL 75 MG TAB PO SCH (14:31)
--- NOTE | 2021-11-23 17:10 | Magnetic Resonance Report ---
MRI BRAIN WITHOUT CONTRAST INDICATION / CLINICAL INFORMATION: stroke. TECHNIQUE: Multiplanar, multisequence MR images of the brain were obtained. COMPARISON: Head CT 11/22/2021 at 0912 hours and 11/22/2021 at 1952 hours. FINDINGS: BRAIN / INTRACRANIAL CONTENTS a moderate region of restricted diffusion is observed involving the inf erior and middle right frontal lobe gyri and right parietal lobe. Decreased signal intensity is seen on ADC map imaging. Early signal changes are observed in the same distribution on FLAIR and T2-weight ed scans. These findings confirm the presence of the recently identified right middle cerebral artery infarction. An additional, smaller region of restricted diffusion is present in the posterior latera l aspect of the right occipital lobe. This infarction could be in a posterior cerebral artery or midd le cerebral artery distribution. No additional regions of abnormal brain parenchymal signal intensity are identified. There is no indication of hemorrhagic transformation of these infarctions. Ventricles and cortical sulci are normal in size and configuration. Mild microvascular ischemic santos es are present in the left cerebral hemisphere. The brainstem and cerebellum have an unremarkable appearance. MIDLINE STRUCTURES:No abnormalities are seen to involve the pituitary gland. Pineal region has an unr emarkable appearance. CRANIOCERVICAL JUNCTION: No abnormalities are identified at the craniocervical junction. VASCULAR FLOW-VOIDS: Normal flow-voids are present within the major intracranial vessels. ORBITS: The orbits have an unremarkable appearance. SINUSES / MASTOIDS: There is no indication of inflammatory disease in the paranasal sinuses or mastoi d air cells. IMPRESSION: 1. This study confirms the presence of a acute right MCA infarction involving right frontal and parie srinivasan lobes. In addition a second area of acute infarction is observed along the posterior lateral aspe ct of the left occipital lobe as described above. There is no indication of hemorrhagic transformatio n. Signer Name: David Abreu MD Signed: 11/23/2021 5:05 PM Workstation Name: [id number]
--- NOTE | 2021-11-23 20:20 | Electrocardiograph Report ---
[facility] Test Date: 2021-11-22 Test Time: 11:16:39 Pat Name: CHANI FULLER Department: Room: A483 1 Gender: M Catering Service Manager: BRIANNA : 1960 Requested By: ALEX CURRY Order Number: [id number] Reading MD: Ute Palomo Measurements Intervals [place] Rate: 93 P: 49 SD: 175 QRS: 36 QRSD: 85 T: 65 QT: 344 QTc: 427 Interpretive Statements Sinus rhythm No previous ECG available for comparison Electronically Signed On 11-23-2021 20:19:49 EDT by Ute Palomo
[2021-11-23 21:39] LABS: Chol/HDL Ratio 5.92 %
[2021-11-24] MEDS: INSULIN LISPRO 100 UNIT/ML SUB-Q SCH ×4 (07:47→17:32)
--- NOTE | 2021-11-24 10:50 | Progress Note ---
Assessment and Plan Assessment and Plan 61 YO male with DM, Obesity Hypoventilation Syndrome, Metabolic Syndrome presents ED for evaluation. Patient reports "my left side is numb and my speech is slurred". Patient states that he was in his usual state of health at bedtime around 2200 hrs. Patient states that he awoke from sleep around 0500 hrs. and was found to have left-sided weakness as well as slurred speech - Patient Problems # new onset left side weakness with left visual neglect and left Upper weakness -findings is suggestive of CVA in evolution -Initial NIH was#0 last night -- today NIh#7 -CT brain inital is remarkable for remote right MCA infarct -repeat CT brain showed evolving MCA right side infarct -parietal -CTA brain and neck is remarkable for almost complet occlusion of right ICA at cavernous segment -cardiac monitoring -Neuro check q shift -MRI brain is remarkable for right MCA infarct involve right frontal and parietal region, also noted left acute posterio occipital infarct -EEG is pending -echo is with EF#60-65% -US carotid <50% bilateral -LDL#164 # Hx of HTN - allow for permissive HTN for 24hours then gradual decrease to 150/80 # New onset of left simple partial seizure -noted today he is alert with rhythmic left arm jerking intermittent -started on Keppra 750 mg Iv BID -ativan 2 mg prn for seizure -EEG -seizure precaution # HLP -lipid profile is pending -started on Lipitor 40 mg #Hx of peripheral vascualr disease -Bilateral lower ext. -s/p stent left leg -was on ASA and Lipitor at home until recently # Obesity hypoventilation syndrome -Balanced diet, increase physical activity discharge, outpatient pulmonary follow-up for sleep study. # DVT prophylaxis -SCDs bilateral lower extremities while in bed # Advance care planning -Disease education conducted, care plan discussed, diagnoses discussed, prognosis discussed, patient is full code, patient knowledges understanding and agreement with care plan, ALEXANDRO 1- Maintain current dual antiplatlet med. 2- Advance lipitor to 80 mg daily 3- start Keppra 750 mg BID 4- Ativan prn for seizure 5- Repeat CT brain r/o hemorrhage 6- consider [facility]OT on D/C with cardiology follow r/o AF !!!! 7- PT therapy will follow Subjective Date of service: 11/24/21 Principal diagnosis: left side weakness Interval history: today pt. is awake according to him since last night he is having intermittent left arm jerking with no change in mentation also noted during my evaluation , not controllable, Objective - Vital Sign Vital Signs - 12hr 11/23/21 11/24/21 11/24/21 23:39 03:17 07:30 Temperature 99.1 F 99.1 F 97.6 F Pulse Rate 110 H 98 H 106 H Respiratory 19 20 18 Rate Blood Pressure 149/93 128/78 148/76 O2 Sat by Pulse 95 96 93 Oximetry - General Apperance Constitutional: uncomfortable - EENT EENT: PERRL, mucous membranes moist - Respiratory Respiratory: lungs clear, rhonchi - Cardiovascular Cardiovascular: regular rate, normal S1, normal S2 Extremities: no peripheral edema bilat, no clubbing, cyanosis - Gastrointestinal Gastrointestinal: normoactive bowel sounds - Integumentary Integumentary: normal - Neurologic Cranial nerve examination: PERRL, EOMI, facial droop Speech examination: intact Detailed motor examination: other (left upper 2/5 , with intermittent rhythmic jerking is noted , left lower is 4/5 ) - Laboratory Findings CBC and BMP: 11/22/21 10:20 11/22/21 10:20 Abnormal Lab Findings: Abnormal Labs 11/22/21 11/22/21 11/22/21 10:20 10:20 10:32 RBC 5.24 H MCV 79 L MCH 27 L [place] % (Auto) 11.4 H Glucose 107 H POC Glucose 106 H Hemoglobin A1c Cholesterol LDL Cholesterol Direct Ur Specific [place] 11/22/21 11/22/21 11/23/21 11:05 16:42 08:12 RBC MCV MCH [place] % (Auto) Glucose POC Glucose 107 H 112 H Hemoglobin A1c Cholesterol LDL Cholesterol Direct Ur Specific [place] 1.041 H 11/23/21 11/23/21 11/23/21 11:32 17:00 20:38 RBC MCV MCH [place] % (Auto) Glucose POC Glucose 127 H 120 H Hemoglobin A1c 7.7 H Cholesterol LDL Cholesterol Direct Ur Specific [place] 11/23/21 11/24/21 20:38 07:28 RBC MCV MCH [place] % (Auto) Glucose POC Glucose 116 H Hemoglobin A1c Cholesterol 249 H LDL Cholesterol Direct 164 H Ur Specific [place]
[2021-11-24 10:57] LABS: BUN/Creatinine Ratio 13; Blood Urea Nitrogen 13 mg/dL (9-20); Calcium 9.9 mg/dL (8.4-10.2); Hemolysis Index 6
[2021-11-24] MEDS ORDERED: LORazepam 2 MG/ML VIAL IV PRN (11:00)
--- NOTE | 2021-11-24 11:38 | Cat Scan Report ---
CT BRAIN: 11/24/2021 INDICATION / CLINICAL INFORMATION: new onset left side jerking r/o hemorrhage. COMPARISON: CT brain 11/22/2021. MRI brain 11/23/2021. FINDINGS: BRAIN/INTRACRANIAL STRUCTURES: Unenhanced CT images of the brain demonstrate no evidence of acute abn ormality. Evolving hypodensity in the right middle cerebral artery distribution of the frontal and parietal lob es is again noted. Hypodensity in the small portion of the right occipital lobe is now visible, as se en on the prior MRI. There is no evidence of hemorrhage. There are no abnormal extra-axial fluid collections. EXTRACRANIAL STRUCTURES: Unremarkable. IMPRESSION: Evolving CT appearance of previously identified right hemispheric cortical ischemic changes. No evid ence of hemorrhage or acute superimposed abnormality All CT scans at this location are performed using dose reduction to ALARA by means of automated expos ure control. Signer Name: Janusz Romero MD Signed: 11/24/2021 11:34 AM Workstation Name: [id number]
[2021-11-24] MEDS: PANTOPRAZOLE 40 MG TAB PO SCH (12:00)
[2021-11-24] MEDS: CLOPIDOGREL 75 MG TAB PO SCH (12:00)
[2021-11-24] MEDS: ASPIRIN 81 MG TAB CHEW PO SCH (12:00)
[2021-11-24] MEDS: levETIRAcetam 750 MG in DEXTROSE 5% IN WATER 100 ML IV SCH ×2 (12:01→22:40)
--- NOTE | 2021-11-24 15:27 | Progress Note ---
Assessment and Plan 61 YO male with DM, Obesity presented to ED for left sideed numbness and slurred speech. Patient states that he was in his usual state of health at bedtime around 2200 hrs. A code stroke was called and All lab and imaging studies reviewed. The patient was admitted to telemetry and initiated on CVA protocol. Telemetry neurology was consulted, tpa was not given as he was out of window. 11/23 patient is awake and alert and oriented. Offers no specific complaints. Denies headache or dizziness. Denies chest pain or shortness of breath. Denies fever or chills. Lab results reviewed. CT head and CTA head and neck results reviewed. MRI ordered. Echo ordered. Neurology consulted and discussed with Dr. Loera 11/24: cont to have leftsided weakness UE>LE. pending acute rehab placement. cont AED per neuro. Assessment and plan 1. Acute ischemic stroke involving the intracranial portion of right ICA with left upper extremity paresis Continue DAPT Telemetry Echo results reviewed EF normal Mild diastolic dysfunction No bubble contrast echo was done-PFO cannot be assessed Carotid Doppler artery results reviewed CT angiogram of head and neck results reviewed MRI brain ordered-pending PT//OT/speech therapy evaluation pending N.p.o. until cleared by speech therapy 2. Type 2 diabetes Check A1c Continue insulin sliding scale coverage Accu-Cheks reviewed History of [facility] Outpatient follow-up with pulmonary for sleep study Obesity class II Counseling regarding diet, exercise and weight loss was done Subjective Date of service: 11/24/21 Principal diagnosis: left side weakness Interval history: Patient seen and examined c/o Left sided weakness and shaking tolerating diet, pending acute rehab Objective - Exam Narrative Exam: GENERAL: well-developed and well-nourished AAM lying on bed appeared to be in no discomfort. HEENT: Normocephalic. Atraumatic. No conjunctival congestion or icterus. Patient has moist mucous membranes. NECK: Supple. Trachea midline. CHEST/LUNGS: Clear to auscultated bilaterally, breathing nonlabored. No wheezes crackles or rhonchi. HEART/CARDIOVASCULAR: Regular in rate and rhythm. S1 and S2 positive. ABDOMEN: Abdomen is soft, nontender. Patient has normal bowel sounds. SKIN: There is no rash. Warm and dry. NEURO: left sided weakness UE>LE . Follows command. MUSCULOSKELETAL: No joint effusion or tenderness. EXTRIMITY: No edema, no cyanosis or clubbing. PSYCH: Cooperative. - Constitutional Vitals: Vital Signs - 12hr 11/24/21 11/24/21 11/24/21 07:30 08:00 09:00 Temperature 97.6 F Pulse Rate 106 H 106 H Respiratory 18 Rate Blood Pressure 148/76 O2 Sat by Pulse 93 98 Oximetry - Labs CBC & Chem 7: 11/22/21 10:20 11/24/21 09:58 Labs: Abnormal lab results 11/23/21 11/23/21 11/23/21 Range/Units 17:00 20:38 20:38 Carbon Dioxide (22-30) mmol/L Glucose (75-100) mg/dL POC Glucose 120 H (70-105) mg/dL Hemoglobin A1c 7.7 H (4-6) % Cholesterol 249 H (50-199) mg/dL LDL Cholesterol Direct 164 H (50-130) mg/dL 11/24/21 11/24/21 11/24/21 Range/Units 07:28 09:58 11:32 Carbon Dioxide 20 L (22-30) mmol/L Glucose 140 H (75-100) mg/dL POC Glucose 116 H 117 H (70-105) mg/dL Hemoglobin A1c (4-6) % Cholesterol (50-199) mg/dL LDL Cholesterol Direct (50-130) mg/dL HEART Score - HEART Score Troponin: Troponin T < 0.010 ng/mL (0.00-0.029) 11/22/21 10:20
[2021-11-25] MEDS: INSULIN LISPRO 100 UNIT/ML SUB-Q SCH ×5 (07:39→22:41)
[2021-11-25] MEDS: CLOPIDOGREL 75 MG TAB PO SCH (09:50)
[2021-11-25] MEDS: levETIRAcetam 750 MG in DEXTROSE 5% IN WATER 100 ML IV SCH ×2 (09:50→21:52)
[2021-11-25] MEDS: ASPIRIN 81 MG TAB CHEW PO SCH (09:50)
[2021-11-25] MEDS: PANTOPRAZOLE 40 MG TAB PO SCH (09:50)
--- NOTE | 2021-11-25 11:15 | Progress Note ---
Assessment and Plan Assessment and Plan 61 YO male with DM, Obesity Hypoventilation Syndrome, Metabolic Syndrome presents ED for evaluation. Patient reports "my left side is numb and my speech is slurred". Patient states that he was in his usual state of health at bedtime around 2200 hrs. Patient states that he awoke from sleep around 0500 hrs. and was found to have left-sided weakness as well as slurred speech - Patient Problems # new onset left side weakness with left visual neglect and left Upper weakness -findings is suggestive of CVA in evolution -Initial NIH was#0 last night -- today NIh#7 -CT brain inital is remarkable for remote right MCA infarct -repeat CT brain showed evolving MCA right side infarct -parietal -CTA brain and neck is remarkable for almost complet occlusion of right ICA at cavernous segment -cardiac monitoring -Neuro check q shift -MRI brain is remarkable for right MCA infarct involve right frontal and parietal region, also noted left acute posterio occipital infarct -EEG is remarkable slight slowing right region -echo is with EF#60-65% -US carotid <50% bilateral -LDL#164 # Hx of HTN - allow for permissive HTN for 24hours then gradual decrease to 150/80 # New onset of left simple partial seizure -noted today he is alert with rhythmic left arm jerking intermittent -started on Keppra 750 mg Iv BID -ativan 2 mg prn for seizure -EEG is done -seizure precaution # HLP -lipid profile is,LDL#164 -started on Lipitor 40 mg #Hx of peripheral vascualr disease -Bilateral lower ext. -s/p stent left leg -was on ASA and Lipitor at home until recently # Obesity hypoventilation syndrome -Balanced diet, increase physical activity discharge, outpatient pulmonary follow-up for sleep study. # DVT prophylaxis -SCDs bilateral lower extremities while in bed # Advance care planning -Disease education conducted, care plan discussed, diagnoses discussed, prognosis discussed, patient is full code, patient knowledges understanding and agreement with care plan, ALEXANDRO 1- Maintain current dual antiplatlet med. 2- Advance lipitor to 80 mg daily 3- start Keppra 750 mg BID 4- Ativan prn for seizure 5- Repeat CT brain r/o hemorrhage 6- consider MCOT on D/C with cardiology follow r/o AF !!!! 7- PT therapy,OT out pt. 8- seizure precaution no driving/ neurology follow up will follow Subjective Date of service: 11/25/21 Principal diagnosis: left side weakness Interval history: today pt. is awake left side jerking stopped he is on Keppra 750 mg bid left lower is intact left upper 1/5 need cardiac monitoring as out pt. r/o AF maintain ASA and Plavix for now and Lipitor 80 mg PT /OT out pt. Objective - Vital Sign Vital Signs - 12hr 11/24/21 11/25/21 23:56 03:47 Temperature 98.9 F Pulse Rate 101 H Respiratory 18 Rate Blood Pressure 142/71 O2 Sat by Pulse 96 97 Oximetry - General Apperance Constitutional: comfortable - EENT EENT: PERRL, mucous membranes moist - Respiratory Respiratory: lungs clear, rhonchi - Cardiovascular Cardiovascular: regular rate, normal S1, normal S2 Extremities: no peripheral edema bilat, no clubbing, cyanosis - Gastrointestinal Gastrointestinal: normoactive bowel sounds - Integumentary Integumentary: normal - Neurologic Cranial nerve examination: PERRL, EOMI, facial droop Speech examination: intact Detailed motor examination: other (left upper weakness1/5 , left lower is 4/5 ) - Laboratory Findings CBC and BMP: 11/22/21 10:20 11/24/21 09:58 Abnormal Lab Findings: Abnormal Labs 11/22/21 11/22/21 11/22/21 10:20 10:20 10:32 RBC 5.24 H MCV 79 L MCH 27 L [place] % (Auto) 11.4 H Carbon Dioxide Glucose 107 H POC Glucose 106 H Hemoglobin A1c Cholesterol LDL Cholesterol Direct Ur Specific [place] 11/22/21 11/22/21 11/23/21 11:05 16:42 08:12 RBC MCV MCH [place] % (Auto) Carbon Dioxide Glucose POC Glucose 107 H 112 H Hemoglobin A1c Cholesterol LDL Cholesterol Direct Ur Specific [place] 1.041 H 11/23/21 11/23/21 11/23/21 11:32 17:00 20:38 RBC MCV MCH [place] % (Auto) Carbon Dioxide Glucose POC Glucose 127 H 120 H Hemoglobin A1c 7.7 H Cholesterol LDL Cholesterol Direct Ur Specific [place] 11/23/21 11/24/21 11/24/21 20:38 07:28 09:58 RBC MCV MCH [place] % (Auto) Carbon Dioxide 20 L Glucose 140 H POC Glucose 116 H Hemoglobin A1c Cholesterol 249 H LDL Cholesterol Direct 164 H Ur Specific [place] 11/24/21 11:32 RBC MCV MCH [place] % (Auto) Carbon Dioxide Glucose POC Glucose 117 H Hemoglobin A1c Cholesterol LDL Cholesterol Direct Ur Specific [place]
--- NOTE | 2021-11-25 12:05 | Cat Scan Report ---
CT HEAD WITHOUT CONTRAST INDICATION / CLINICAL INFORMATION: AMS. Recent stroke. TECHNIQUE: All CT scans at this location are performed using CT dose reduction for ALARA by means of automated exposure control. COMPARISON: CT dated 11/24/2021 and 11/22/2021 FINDINGS: HEMORRHAGE: None. EXTRA-AXIAL SPACES: Normal in size and morphology for the patient's age. VENTRICULAR SYSTEM: Normal in size and morphology for the patient's age. CEREBRAL PARENCHYMA: No change in the involving right MCA distribution infarct. No new territorial in farct. MIDLINE SHIFT / HERNIATION: None. CEREBELLUM / BRAINSTEM: No significant abnormality. ORBITS: Normal as visualized. SOFT TISSUES: No significant abnormality. SKULL: No significant abnormality. PARANASAL SINUSES / MASTOID AIR CELLS: Normal as visualized. ADDITIONAL FINDINGS: None. IMPRESSION: 1. No significant change in appearance of right MCA distribution infarct. No bleed or other acute abn ormality. Signer Name: Zeina Adams MD Signed: 11/25/2021 12:00 PM Workstation Name: [id number]
--- NOTE | 2021-11-25 13:30 | Progress Note ---
Assessment and Plan 61 YO male with DM, Obesity presented to ED for left sideed numbness and slurred speech. Patient states that he was in his usual state of health at bedtime around 2200 hrs. A code stroke was called and All lab and imaging studies reviewed. The patient was admitted to telemetry and initiated on CVA protocol. Telemetry neurology was consulted, tpa was not given as he was out of window. 11/23 patient is awake and alert and oriented. Offers no specific complaints. Denies headache or dizziness. Denies chest pain or shortness of breath. Denies fever or chills. Lab results reviewed. CT head and CTA head and neck results reviewed. MRI ordered. Echo ordered. Neurology consulted and discussed with Dr. Loera 11/24: cont to have leftsided weakness UE>LE. pending acute rehab placement. cont AED per neuro. 11/25: Pat fell on ground last night, didnot hit his head. repeat CT last night and today w/o acute changes. pending acute rehab, cot AED Assessment and plan -- Acute ischemic stroke involving the intracranial portion of right ICA with left upper extremity paresis Continue DAPT, AED for focal seizure Telemetry Echo results reviewed EF normal Mild diastolic dysfunction No bubble contrast echo was done-PFO cannot be assessed Carotid Doppler artery results reviewed CT angiogram of head and neck results reviewed MRI brain ordered-pending PT//OT/speech therapy evaluation pending N.p.o. until cleared by speech therapy --Focal seizure, cont keppra -- Type 2 diabetes Check A1c Continue insulin sliding scale coverage Accu-Cheks reviewed --History of [facility] Outpatient follow-up with pulmonary for sleep study --Obesity class II Counseling regarding diet, exercise and weight loss was done --DVT Px Subjective Date of service: 11/25/21 Principal diagnosis: left side weakness Interval history: Patient seen and examined c/o Left sided weakness and no shaking today pt fell on the ground last night, repeat CT w/o any acute changes tolerating diet, pending acute rehab Objective - Exam Narrative Exam: GENERAL: well-developed and well-nourished AAM lying on bed appeared to be in no discomfort. HEENT: Normocephalic. Atraumatic. No conjunctival congestion or icterus. Patient has moist mucous membranes. NECK: Supple. Trachea midline. CHEST/LUNGS: Clear to auscultated bilaterally, breathing nonlabored. No wheezes crackles or rhonchi. HEART/CARDIOVASCULAR: Regular in rate and rhythm. S1 and S2 positive. ABDOMEN: Abdomen is soft, nontender. Patient has normal bowel sounds. SKIN: There is no rash. Warm and dry. NEURO: left sided weakness UE>LE . Follows command. MUSCULOSKELETAL: No joint effusion or tenderness. EXTRIMITY: No edema, no cyanosis or clubbing. PSYCH: Cooperative. - Constitutional Vitals: Vital Signs - 12hr 11/25/21 11/25/21 11/25/21 03:47 08:44 10:00 Temperature 98.9 F 98.6 F Pulse Rate 101 H 105 H 101 H Respiratory 18 16 Rate Blood Pressure 142/71 122/77 O2 Sat by Pulse 97 95 Oximetry 11/25/21 11/25/21 11:00 12:04 Temperature 98.0 F Pulse Rate 104 H Respiratory 18 Rate Blood Pressure 146/85 O2 Sat by Pulse 97 94 Oximetry - Labs CBC & Chem 7: 11/22/21 10:20 11/24/21 09:58 Labs: Abnormal lab results 11/24/21 Range/Units 11:32 POC Glucose 117 H (70-105) mg/dL HEART Score - HEART Score Troponin: Troponin T < 0.010 ng/mL (0.00-0.029) 11/22/21 10:20
--- NOTE | 2021-11-25 18:09 | Progress Note ---
Assessment and Plan My left side is weak and my speech is slurred History of present illness: 61 YO male with DM, Obesity Hypoventilation Syndrome, Metabolic Syndrome presents ED for evaluation. Patient reports "my left side is numb and my speech is slurred". Patient states that he was in his usual state of health at bedtime around 2200 hrs. Patient states that he awoke from sleep around 0500 hrs. and was found to have left-sided weakness as well as slurred speech. EMS was notified and upon arrival the patient was found to be in distress with a focal neurologic deficit. A code stroke was called and the patient was transported to [facility] for further care and evaluation of the aforementioned symptoms. The patient was seen and evaluated in the emergency department. All lab and imaging studies reviewed. Patient found to have a focal neurologic deficit as well as concomitant systems consistent with CVA. The patient was admitted to telemetry and initiated on CVA protocol. Telemetry neurology was consulted. Patient has fever, chills, chest pain, palpitation, productive cough, skin rash, trauma, recent ill contact, known exposure to COVID-19. No prior admission for review. All medication listed at time of admission has been reconciled. Advanced care planning conducted in ED. 11/23 patient is awake and alert and oriented. Offers no specific complaints. Denies headache or dizziness. Denies chest pain or shortness of breath. Denies fever or chills. Lab results reviewed. CT head and CTA head and neck results reviewed. MRI ordered. Echo ordered. Neurology consulted and discussed with Dr. Loera Assessment and plan 1. Acute ischemic stroke involving the intracranial portion of right ICA with left upper extremity paresis Continue DAPT Telemetry Echo results reviewed EF normal Mild diastolic dysfunction No bubble contrast echo was done-PFO cannot be assessed Carotid Doppler artery results reviewed CT angiogram of head and neck results reviewed MRI brain ordered-pending PT//OT/speech therapy evaluation pending N.p.o. until cleared by speech therapy 2. Type 2 diabetes Check A1c Continue insulin sliding scale coverage Accu-Cheks reviewed History of [facility] Outpatient follow-up with pulmonary for sleep study Obesity class II Counseling regarding diet, exercise and weight loss was done Subjective Date of service: 11/25/21 Principal diagnosis: left side weakness Objective - Constitutional Vitals: Vital Signs - 12hr 11/25/21 11/25/21 11/25/21 08:44 10:00 11:00 Temperature 98.6 F Pulse Rate 105 H 101 H Respiratory 16 Rate Blood Pressure 122/77 O2 Sat by Pulse 95 97 Oximetry 11/25/21 11/25/21 12:04 16:21 Temperature 98.0 F 98.5 F Pulse Rate 104 H 103 H Respiratory 18 18 Rate Blood Pressure 146/85 143/88 O2 Sat by Pulse 94 91 Oximetry - Labs CBC & Chem 7: 11/22/21 10:20 11/24/21 09:58 HEART Score - HEART Score Troponin: Troponin T < 0.010 ng/mL (0.00-0.029) 11/22/21 10:20
[2021-11-26] MEDS: INSULIN LISPRO 100 UNIT/ML SUB-Q SCH ×4 (07:54→22:00)
[2021-11-26] MEDS ORDERED: levETIRAcetam 750 MG in DEXTROSE 5% IN WATER 100 ML IV SCH (07:59)
[2021-11-26 09:37] LABS: BUN/Creatinine Ratio 18; Blood Urea Nitrogen 14 mg/dL (9-20); Calcium 9.7 mg/dL (8.4-10.2); Hemolysis Index 13
[2021-11-26] MEDS: ASPIRIN 81 MG TAB CHEW PO SCH (10:39)
[2021-11-26] MEDS: levETIRAcetam 500 MG TAB PO SCH ×2 (10:40→22:34)
[2021-11-26] MEDS: PANTOPRAZOLE 40 MG TAB PO SCH (10:42)
[2021-11-26] MEDS: CLOPIDOGREL 75 MG TAB PO SCH (10:42)
--- NOTE | 2021-11-26 11:14 | Progress Note ---
Assessment and Plan Assessment and Plan 61 YO male with DM, Obesity Hypoventilation Syndrome, Metabolic Syndrome presents ED for evaluation. Patient reports "my left side is numb and my speech is slurred". Patient states that he was in his usual state of health at bedtime around 2200 hrs. Patient states that he awoke from sleep around 0500 hrs. and was found to have left-sided weakness as well as slurred speech - Patient Problems # new onset left side weakness with left visual neglect and left Upper weakness -findings is suggestive of CVA in evolution -Initial NIH was#0 last night -- today NIh#7 -CT brain inital is remarkable for remote right MCA infarct -repeat CT brain showed evolving MCA right side infarct -parietal -CTA brain and neck is remarkable for almost complet occlusion of right ICA at cavernous segment -cardiac monitoring -Neuro check q shift -MRI brain is remarkable for right MCA infarct involve right frontal and parietal region, also noted left acute posterio occipital infarct -EEG is remarkable slight slowing right region -echo is with EF#60-65% -US carotid <50% bilateral -LDL#164 # Hx of HTN - allow for permissive HTN for 24hours then gradual decrease to 150/80 # New onset of left simple partial seizure -noted today he is alert with rhythmic left arm jerking intermittent -started on Keppra 750 mg Iv BID -ativan 2 mg prn for seizure -EEG is done -seizure precaution # HLP -lipid profile is,LDL#164 -started on Lipitor 40 mg #Hx of peripheral vascualr disease -Bilateral lower ext. -s/p stent left leg -was on ASA and Lipitor at home until recently # Obesity hypoventilation syndrome -Balanced diet, increase physical activity discharge, outpatient pulmonary follow-up for sleep study. # DVT prophylaxis -SCDs bilateral lower extremities while in bed # Advance care planning -Disease education conducted, care plan discussed, diagnoses discussed, prognosis discussed, patient is full code, patient knowledges understanding and agreement with care plan, ALEXANDRO 1- Maintain current dual antiplatlet med.X 3 weeks then ASA 325 mg daily 2- Advance lipitor to 80 mg daily 3- start Keppra 750 mg BID-changed to po 4- Ativan prn for seizure 5- Repeat CT brain r/o hemorrhage done is with no changes 6- consider MCOT on D/C with cardiology follow r/o AF !!!! 7- PT therapy,OT out pt. 8- seizure precaution no driving/ neurology follow up 9- neurology follow up will sign off Subjective Date of service: 11/26/21 Principal diagnosis: left side weakness Interval history: today pt. is awake left side jerking stopped he is on Keppra 750 mg bid left lower is intact left upper 1/5 need cardiac monitoring as out pt. r/o AF maintain ASA and Plavix for now and Lipitor 80 mg PT /OT out pt. pt. mentioned he fell yesterday after he was left on chair and he did slide off the chair he denied LOC or seizure Objective - Vital Sign Vital Signs - 12hr 11/25/21 11/26/21 23:55 04:13 Temperature 98.2 F 98.1 F Pulse Rate 98 H 101 H Respiratory 18 18 Rate Blood Pressure 127/78 135/76 O2 Sat by Pulse 96 95 Oximetry - General Apperance Constitutional: comfortable - EENT EENT: PERRL, mucous membranes moist - Respiratory Respiratory: lungs clear, rhonchi - Cardiovascular Cardiovascular: regular rate, normal S1, normal S2 Extremities: no peripheral edema bilat, no clubbing, cyanosis - Gastrointestinal Gastrointestinal: normoactive bowel sounds - Integumentary Integumentary: normal - Neurologic Cranial nerve examination: PERRL, EOMI, facial droop Speech examination: intact Detailed motor examination: other (left upper is 1/5 left lower is 4-/5 planter is down , gait not done) - Laboratory Findings CBC and BMP: 11/22/21 10:20 11/26/21 08:24 Abnormal Lab Findings: Abnormal Labs 11/22/21 11/22/21 11/22/21 10:20 10:20 10:32 RBC 5.24 H MCV 79 L MCH 27 L [place] % (Auto) 11.4 H Sodium Carbon Dioxide Glucose 107 H POC Glucose 106 H Hemoglobin A1c Cholesterol LDL Cholesterol Direct Ur Specific [place] 11/22/21 11/22/21 11/23/21 11:05 16:42 08:12 RBC MCV MCH [place] % (Auto) Sodium Carbon Dioxide Glucose POC Glucose 107 H 112 H Hemoglobin A1c Cholesterol LDL Cholesterol Direct Ur Specific [place] 1.041 H 11/23/21 11/23/21 11/23/21 11:32 17:00 20:38 RBC MCV MCH [place] % (Auto) Sodium Carbon Dioxide Glucose POC Glucose 127 H 120 H Hemoglobin A1c 7.7 H Cholesterol LDL Cholesterol Direct Ur Specific [place] 11/23/21 11/24/21 11/24/21 20:38 07:28 09:58 RBC MCV MCH [place] % (Auto) Sodium Carbon Dioxide 20 L Glucose 140 H POC Glucose 116 H Hemoglobin A1c Cholesterol 249 H LDL Cholesterol Direct 164 H Ur Specific [place] 11/24/21 11/25/21 11/26/21 11:32 22:39 08:24 RBC MCV MCH [place] % (Auto) Sodium 135 L Carbon Dioxide Glucose 104 H POC Glucose 117 H 129 H Hemoglobin A1c Cholesterol LDL Cholesterol Direct Ur Specific [place]
--- NOTE | 2021-11-26 13:33 | Progress Note ---
Subjective Date of service: 11/26/21 Principal diagnosis: left side weakness Interval history: 61 YO male with DM, Obesity presented to ED for left sideed numbness and slurred speech. Patient states that he was in his usual state of health at bedtime around 2200 hrs. A code stroke was called and All lab and imaging studies reviewed. The patient was admitted to telemetry and initiated on CVA protocol. Telemetry neurology was consulted, tpa was not given as he was out of window. 11/23 patient is awake and alert and oriented. Offers no specific complaints. Denies headache or dizziness. Denies chest pain or shortness of breath. Denies fever or chills. Lab results reviewed. CT head and CTA head and neck results reviewed. MRI ordered. Echo ordered. Neurology consulted and discussed with Dr. Loera 11/24: cont to have leftsided weakness UE>LE. pending acute rehab placement. cont AED per neuro. 11/25: Pat fell on ground last night, didnot hit his head. repeat CT last night and today w/o acute changes. pending acute rehab, cot AED Assessment and plan -- Acute ischemic stroke involving the intracranial portion of right ICA with left upper extremity paresis Continue DAPT, AED for focal seizure Telemetry Echo results reviewed EF normal Mild diastolic dysfunction No bubble contrast echo was done-PFO cannot be assessed Carotid Doppler artery results reviewed CT angiogram of head and neck results reviewed MRI brain ordered-pending PT//OT/speech therapy evaluation pending N.p.o. until cleared by speech therapy --Focal seizure, cont keppra -- Type 2 diabetes Check A1c Continue insulin sliding scale coverage Accu-Cheks reviewed --History of [facility] Outpatient follow-up with pulmonary for sleep study --Obesity class II Counseling regarding diet, exercise and weight loss was done Patient apparently had a fall (accidental) He was sitting in a chair and tried to slide a pillow onto his back and slid. No injury. No seizure episode. Denies any pain --DVT Px Waiting for acute rehab placement Objective - Constitutional Vitals: Vital Signs - 12hr 11/26/21 11/26/21 11/26/21 04:13 07:22 11:20 Temperature 98.1 F 98.5 F 99.4 F Pulse Rate 101 H 98 H Respiratory 18 18 18 Rate Blood Pressure 135/76 140/82 122/70 O2 Sat by Pulse 95 96 Oximetry General appearance: Present: no acute distress - EENT Eyes: PERRL, EOM intact ENT: hearing intact - Neck Neck: supple, normal ROM, no masses or JVD - Respiratory Respiratory effort: normal Respiratory: bilateral: CTA - Cardiovascular Rhythm: regular Extremities: No edema - Gastrointestinal General gastrointestinal: Present: soft Rectal Exam: deferred - Genitourinary Male genitourinary: deferred - Musculoskeletal Musculoskeletal: left sided weakness (Left upper extremity is flaccid, has a left facial droop) - Psychiatric Psychiatric: appropriate mood/affect - Labs CBC & Chem 7: 11/22/21 10:20 11/26/21 08:24 Labs: Abnormal lab results 11/25/21 11/26/21 11/26/21 Range/Units 22:39 07:21 08:24 Sodium 135 L (137-145) mmol/L Glucose 104 H (75-100) mg/dL POC Glucose 129 H 110 H (70-105) mg/dL 11/26/21 Range/Units 11:21 Sodium (137-145) mmol/L Glucose (75-100) mg/dL POC Glucose 119 H (70-105) mg/dL HEART Score - HEART Score Troponin: Troponin T < 0.010 ng/mL (0.00-0.029) 11/22/21 10:20
[2021-11-26] MEDS: ENOXAPARIN 40 MG/0.4 ML INJ SUB-Q SCH (22:35)
[2021-11-27] MEDS: PANTOPRAZOLE 40 MG TAB PO SCH (09:42)
[2021-11-27] MEDS: ASPIRIN 81 MG TAB CHEW PO SCH (09:42)
[2021-11-27] MEDS: levETIRAcetam 500 MG TAB PO SCH ×2 (09:42→22:16)
[2021-11-27] MEDS: CLOPIDOGREL 75 MG TAB PO SCH (09:42)
[2021-11-27] MEDS: INSULIN LISPRO 100 UNIT/ML SUB-Q SCH ×4 (09:43→22:00)
--- NOTE | 2021-11-27 16:42 | Progress Note ---
Assessment and Plan 61 YO male with DM, Obesity presented to ED for left sideed numbness and slurred speech. Patient states that he was in his usual state of health at bedtime around 2200 hrs. A code stroke was called and All lab and imaging studies reviewed. The patient was admitted to telemetry and initiated on CVA protocol. Telemetry neurology was consulted, tpa was not given as he was out of window. 11/23 patient is awake and alert and oriented. Offers no specific complaints. Denies headache or dizziness. Denies chest pain or shortness of breath. Denies fever or chills. Lab results reviewed. CT head and CTA head and neck results reviewed. MRI ordered. Echo ordered. Neurology consulted and discussed with Dr. Loera 11/24: cont to have leftsided weakness UE>LE. pending acute rehab placement. cont AED per neuro. 11/25: Pat fell on ground last night, didnot hit his head. repeat CT last night and today w/o acute changes. pending acute rehab, cot AED 11/26: No acute event o/n. pending acute rehab placement 11/27: clinically stable, no further fall since 11/25. focal seizure on the affected side from CVA seems to be in control. pending JOCELYN placement. Assessment and plan -- Acute ischemic stroke involving the intracranial portion of right ICA with left upper extremity paresis Continue DAPT, AED for focal seizure Telemetry Echo results reviewed EF normal Mild diastolic dysfunction No bubble contrast echo was done-PFO cannot be assessed Carotid Doppler artery results reviewed CT angiogram of head and neck results reviewed MRI brain ordered-pending PT//OT/speech therapy evaluation pending N.p.o. until cleared by speech therapy --Focal seizure, cont keppra -- Type 2 diabetes Check A1c Continue insulin sliding scale coverage Accu-Cheks reviewed --History of [facility] Outpatient follow-up with pulmonary for sleep study --Obesity class II Counseling regarding diet, exercise and weight loss was done --DVT Px Subjective Date of service: 11/27/21 Principal diagnosis: left side weakness Interval history: Patient seen and examined c/o Left sided weakness and no shaking today pending placement tolerating diet, pending acute rehab Objective - Exam Narrative Exam: GENERAL: well-developed and well-nourished AAM lying on bed appeared to be in no discomfort. HEENT: Normocephalic. Atraumatic. No conjunctival congestion or icterus. Patient has moist mucous membranes. NECK: Supple. Trachea midline. CHEST/LUNGS: Clear to auscultated bilaterally, breathing nonlabored. No wheezes crackles or rhonchi. HEART/CARDIOVASCULAR: Regular in rate and rhythm. S1 and S2 positive. ABDOMEN: Abdomen is soft, nontender. Patient has normal bowel sounds. SKIN: There is no rash. Warm and dry. NEURO: left sided weakness UE>LE . Follows command. MUSCULOSKELETAL: No joint effusion or tenderness. EXTRIMITY: No edema, no cyanosis or clubbing. PSYCH: Cooperative. - Constitutional Vitals: Vital Signs - 12hr 11/27/21 11/27/21 11/27/21 09:47 10:00 11:00 Temperature 98.1 F Pulse Rate 102 H 87 Pulse Rate [ 97 H From Monitor] Respiratory 18 19 Rate Blood Pressure 142/79 O2 Sat by Pulse 94 100 Oximetry - Labs CBC & Chem 7: 11/22/21 10:20 11/26/21 08:24 Labs: Abnormal lab results 11/26/21 11/26/21 11/27/21 Range/Units 15:52 20:48 08:41 POC Glucose 133 H 109 H 123 H (70-105) mg/dL HEART Score - HEART Score Troponin: Troponin T < 0.010 ng/mL (0.00-0.029) 11/22/21 10:20
[2021-11-27] MEDS: ENOXAPARIN 40 MG/0.4 ML INJ SUB-Q SCH (22:16)
[2021-11-28] MEDS: ASPIRIN 81 MG TAB CHEW PO SCH (09:47)
[2021-11-28] MEDS: CLOPIDOGREL 75 MG TAB PO SCH (09:47)
[2021-11-28] MEDS: PANTOPRAZOLE 40 MG TAB PO SCH (09:47)
[2021-11-28] MEDS: INSULIN LISPRO 100 UNIT/ML SUB-Q SCH ×2 (09:48→12:25)
[2021-11-28] MEDS: levETIRAcetam 500 MG TAB PO SCH (09:48)
--- NOTE | 2021-11-28 10:13 | Progress Note ---
Assessment and Plan Assessment and plan: 61 YO male with DM, Obesity presented to ED for left sideed numbness and slurred speech. Patient states that he was in his usual state of health at bedtime around 2200 hrs. A code stroke was called and All lab and imaging studies reviewed. The patient was admitted to telemetry and initiated on CVA protocol. Telemetry neurology was consulted, tpa was not given as he was out of window. 11/23 patient is awake and alert and oriented. Offers no specific complaints. Denies headache or dizziness. Denies chest pain or shortness of breath. Denies fever or chills. Lab results reviewed. CT head and CTA head and neck results reviewed. MRI ordered. Echo ordered. Neurology consulted and discussed with Dr. Loera 11/24: cont to have leftsided weakness UE>LE. pending acute rehab placement. cont AED per neuro. 11/25: Pat fell on ground last night, didnot hit his head. repeat CT last night and today w/o acute changes. pending acute rehab, cot AED 11/26: No acute event o/n. pending acute rehab placement 11/27: clinically stable, no further fall since 11/25. focal seizure on the affected side from CVA seems to be in control. pending JOCELYN placement. Assessment and plan -- Acute ischemic stroke involving the intracranial portion of right ICA with left upper extremity paresis Continue DAPT, AED for focal seizure Telemetry Echo results reviewed EF normal Mild diastolic dysfunction No bubble contrast echo was done-PFO cannot be assessed Carotid Doppler artery results reviewed CT angiogram of head and neck results reviewed MRI brain ordered-pending PT//OT/speech therapy evaluation pending N.p.o. until cleared by speech therapy --Focal seizure, cont keppra -- Type 2 diabetes Check A1c Continue insulin sliding scale coverage Accu-Cheks reviewed --History of [facility] Outpatient follow-up with pulmonary for sleep study --Obesity class II Counseling regarding diet, exercise and weight loss was done --DVT Px Hospitalist Physical - Constitutional Vitals: Temp Pulse Resp BP Pulse Ox 98.2 F 91 H 18 139/79 97 11/28/21 07:33 11/28/21 07:33 11/28/21 07:33 11/28/21 07:33 11/28/21 07:33 General appearance: Present: no acute distress HEART Score - HEART Score Troponin: Troponin T < 0.010 ng/mL (0.00-0.029) 11/22/21 10:20 Results - Labs CBC & Chem 7: 11/22/21 10:20 11/26/21 08:24 Labs: Laboratory Last Values WBC 6.6 K/mm3 (4.5-11.0) 11/22/21 10:20 RBC 5.24 M/mm3 (3.65-5.03) H 11/22/21 10:20 Hgb 13.9 gm/dl (11.8-15.2) 11/22/21 10:20 Hct 41.5 % (35.5-45.6) 11/22/21 10:20 MCV 79 fl (84-94) L 11/22/21 10:20 MCH 27 pg (28-32) L 11/22/21 10:20 MCHC 33 % (32-34) 11/22/21 10:20 RDW 14.3 % (13.2-15.2) 11/22/21 10:20 Plt Count 209 K/mm3 (140-440) 11/22/21 10:20 Lymph % (Auto) 25.4 % (13.4-35.0) 11/22/21 10:20 [place] % (Auto) 11.4 % (0.0-7.3) H 11/22/21 10:20 Eos % (Auto) 1.7 % (0.0-4.3) 11/22/21 10:20 Baso % (Auto) 0.9 % (0.0-1.8) 11/22/21 10:20 Lymph # (Auto) 1.7 K/mm3 (1.2-5.4) 11/22/21 10:20 [place] # (Auto) 0.8 K/mm3 (0.0-0.8) 11/22/21 10:20 Eos # (Auto) 0.1 K/mm3 (0.0-0.4) 11/22/21 10:20 Baso # (Auto) 0.1 K/mm3 (0.0-0.1) 11/22/21 10:20 Seg Neutrophils % 60.6 % (40.0-70.0) 11/22/21 10:20 Seg Neutrophils # 4.0 K/mm3 (1.8-7.7) 11/22/21 10:20 PT 14.7 Sec. (12.2-14.9) 11/22/21 10:20 INR 1.03 (0.87-1.13) 11/22/21 10:20 APTT 28.1 Sec. (24.2-36.6) 11/22/21 10:20 Sodium 135 mmol/L (137-145) L 11/26/21 08:24 Potassium 4.1 mmol/L (3.6-5.0) 11/26/21 08:24 Chloride 99.6 mmol/L (98-107) 11/26/21 08:24 Carbon Dioxide 22 mmol/L (22-30) 11/26/21 08:24 Anion Gap 18 mmol/L 11/26/21 08:24 BUN 14 mg/dL (9-20) 11/26/21 08:24 Creatinine 0.8 mg/dL (0.8-1.3) 11/26/21 08:24 Estimated GFR > 60 ml/min 11/26/21 08:24 BUN/Creatinine Ratio 18 % 11/26/21 08:24 Glucose 104 mg/dL (75-100) H 11/26/21 08:24 POC Glucose 106 mg/dL (70-105) H 11/27/21 20:34 Hemoglobin A1c 7.7 % (4-6) H 11/23/21 20:38 Calcium 9.7 mg/dL (8.4-10.2) 11/26/21 08:24 Total Bilirubin 0.20 mg/dL (0.1-1.2) 11/22/21 10:20 AST 22 units/L (5-40) 11/22/21 10:20 ALT 24 units/L (7-56) 11/22/21 10:20 Alkaline Phosphatase 125 units/L (35-129) 11/22/21 10:20 Troponin T < 0.010 ng/mL (0.00-0.029) 11/22/21 10:20 NT-Pro-B Natriuret Pep 14.06 pg/mL (0-900) 11/22/21 10:20 Total Protein 7.3 g/dL (6.3-8.2) 11/22/21 10:20 Albumin 3.9 g/dL (3.9-5) 11/22/21 10:20 Albumin/Globulin Ratio 1.1 % 11/22/21 10:20 Triglycerides 142 mg/dL (2-149) 11/23/21 20:38 Cholesterol 249 mg/dL (50-199) H 11/23/21 20:38 LDL Cholesterol Direct 164 mg/dL (50-130) H 11/23/21 20:38 HDL Cholesterol 42 mg/dL (40-59) 11/23/21 20:38 Cholesterol/HDL Ratio 5.92 % 11/23/21 20:38 TSH 1.820 mlU/mL (0.270-4.200) 11/22/21 10:20 Urine Color Yellow (Yellow) 11/22/21 11:05 Urine Turbidity Clear (Clear) 11/22/21 11:05 Urine pH 7.0 (5.0-7.0) 11/22/21 11:05 Ur Specific [place] 1.041 (1.003-1.030) H 11/22/21 11:05 Urine Protein <15 mg/dl mg/dL (Negative) 11/22/21 11:05 Urine Glucose (UA) Neg mg/dL (Negative) 11/22/21 11:05 Urine Ketones Neg mg/dL (Negative) 11/22/21 11:05 Urine Blood Neg (Negative) 11/22/21 11:05 Urine Nitrite Neg (Negative) 11/22/21 11:05 Urine Bilirubin Neg (Negative) 11/22/21 11:05 Urine Urobilinogen < 2.0 mg/dL (<2.0) 11/22/21 11:05 Ur Leukocyte Esterase Neg (Negative) 11/22/21 11:05 Urine WBC (Auto) Not Reportable 11/22/21 11:05 Urine RBC (Auto) 1.0 /HPF (0.0-6.0) 11/22/21 11:05 U Epithel Cells (Auto) < 1.0 /HPF (0-13.0) 11/22/21 11:05 Urine Mucus Few /HPF 11/22/21 11:05 Urine Opiates Screen Negative 11/22/21 10:59 Urine Methadone Screen Negative 11/22/21 10:59 Ur Barbiturates Screen Negative 11/22/21 10:59 Ur Phencyclidine Scrn Negative 11/22/21 10:59 Ur Amphetamines Screen Negative 11/22/21 10:59 U Benzodiazepines Scrn Negative 11/22/21 10:59 Urine Cocaine Screen Negative 11/22/21 10:59 U Marijuana (THC) Screen Negative 11/22/21 10:59 Drugs of Abuse Note Disclamer 11/22/21 10:59 Coronavirus (PCR) Negative (Negative) 11/27/21 13:42 Lynn/IV: Voiding Method Urinal Active Medications - Current Medications Current Medications: Generic Name Dose Route Start Last Admin Trade Name Freq PRN Reason Stop Dose Admin Acetaminophen 650 mg 11/22/21 11:18 11/23/21 20:53 Acetaminophen 325 Mg Tab PO 650 mg Q4H PRN Administration Pain, Mild (1-3) Albuterol 2.5 mg 11/22/21 11:18 Albuterol 2.5 Mg/3 Ml Nebu IH Q3HRT PRN Shortness Of Breath Aspirin 81 mg 11/24/21 10:00 11/28/21 09:47 Aspirin 81 Mg Tab Chew PO 81 mg QDAY JO ANN Administration Atorvastatin Calcium 80 mg 11/24/21 22:00 11/27/21 22:17 Atorvastatin 40 Mg Tab PO 80 mg QHS JO ANN Administration Bisacodyl 10 mg 11/22/21 11:18 Bisacodyl 10 Mg Rect Supp TX QDAY PRN Constipation Clopidogrel Bisulfate 75 mg 11/22/21 17:00 11/28/21 09:47 Clopidogrel 75 Mg Tab PO 75 mg QDAY JO ANN Administration Cyclobenzaprine HCl 10 mg 11/22/21 11:20 Cyclobenzaprine 10 Mg Tab PO BID PRN Muscle Spasm Dextrose 50 ml 11/22/21 11:22 Dextrose 50% In Water (25gm) 50 Ml Syringe IV Q30MIN PRN Hypoglycemia Protocol Enoxaparin Sodium 40 mg 11/26/21 22:00 11/27/21 22:16 Enoxaparin 40 Mg/0.4 Ml Inj SUB-Q 40 mg QDAY@2200 JO ANN Administration Protocol Hydromorphone HCl 0.5 mg 11/22/21 11:18 11/23/21 04:16 Hydromorphone 1 Mg/1 Ml Inj IV 0.5 mg Q23H PRN Administration Pain , Severe (7-10) Insulin Human Lispro 0 unit 11/22/21 11:30 11/28/21 09:48 Insulin Lispro 100 Unit/Ml SUB-Q Not Given ACHS [facility] Protocol Levetiracetam 750 mg 11/26/21 10:00 11/28/21 09:48 Levetiracetam 500 Mg Tab PO 750 mg BID JO ANN Administration Lorazepam 2 mg 11/24/21 11:00 Lorazepam 2 Mg/Ml Vial IV Q4H PRN Seizures Magnesium Hydroxide 30 ml 11/22/21 11:18 Magnesium Hydroxide (Mom) Oral Liqd Udc PO Q4H PRN Constipation Metoclopramide HCl 10 mg 11/22/21 11:18 Metoclopramide 10 Mg Tab PO Q6H PRN Nausea And Vomiting Ondansetron HCl 4 mg 11/22/21 11:18 Ondansetron 4 Mg/2 Ml Inj IV Q8H PRN Nausea And Vomiting Oxycodone/Acetaminophen 1 tab 11/22/21 11:18 11/22/21 13:59 Oxycodone /Acetaminophen 5-325mg Tab PO 1 tab Q16H PRN Administration Pain, Moderate (4-6) Pantoprazole Sodium 40 mg 11/22/21 12:00 11/28/21 09:47 Pantoprazole 40 Mg Tab PO 40 mg DAILY JO ANN Administration Promethazine HCl 25 mg 11/22/21 11:18 Promethazine 25 Mg Rect Supp [place] Q6H PRN Nausea And Vomiting Sodium Chloride 10 ml 11/22/21 11:18 11/27/21 22:17 Sodium Chloride 0.9% 10 Ml Flush Syringe IV 10 ml PRN PRN Administration LINE FLUSH
--- NOTE | 2021-11-28 11:28 | Discharge Summary ---
Providers - Providers Date of Admission: 11/22/21 11:18 Date of discharge: 11/28/21 Attending physician: JAH RAMOS 11/22/21 11:18 Occupational Therapy Evaluate and Treat [CONS] Routine Comment: Reason For Exam: Neuro deficits Physical Therapy Evaluation and Treat [CONS] Routine Comment: Reason For Exam: Neuro deficits 11/22/21 11:19 Speech Therapy Evaluation and Treat [CONS] Routine Reason For Exam: swallow eval 11/23/21 11:53 Consult to Physician [CONS] Routine Comment: Consulting Provider: CORA MINA Physician Instructions: Reason For Exam: stroke Primary care physician: SWATCH MAKER Hospitalization Condition: Stable Hospital course: -- Acute ischemic stroke involving the intracranial portion of right ICA with left upper extremity paresis Continue DAPT, AED for focal seizure Telemetry Echo results reviewed EF normal Mild diastolic dysfunction No bubble contrast echo was done-PFO cannot be assessed Carotid Doppler artery results reviewed CT angiogram of head and neck results reviewed MRI brain ordered-pending PT//OT/speech therapy evaluation pending N.p.o. until cleared by speech therapy --Focal seizure, cont keppra -- Type 2 diabetes Check A1c Continue insulin sliding scale coverage Accu-Cheks reviewed --History of [facility] Outpatient follow-up with pulmonary for sleep study --Obesity class II Counseling regarding diet, exercise and weight loss was done Disposition: 02 [facility] Final Discharge Diagnosis (Prints w/discharge instructions): Acute ischemic CVA. Focal seizures. Type 2 diabetes mellitus. History of obstructive sleep apnea. Obesity hypoventilation syndrome. Obesity class II BMI 35 Time spent for discharge: 40 min Core Measure Documentation - Palliative Care Palliative Care/ Comfort Measures: Not Applicable - Core Measures Any of the following diagnoses?: stroke - Stroke Discharge Requirements Statin for LDL = or >70 mg/dl on DC: Yes Anticoag for atrial fib/atrial flutter: No (No evidence of A. fib or flutter) Antithrombotic for ischemic stroke: Yes Exam - Constitutional Vitals: Temp Pulse Resp BP Pulse Ox 98.2 F 91 H 18 139/79 97 11/28/21 07:33 11/28/21 07:33 11/28/21 07:33 11/28/21 07:33 11/28/21 07:33 General appearance: Present: no acute distress, well-nourished - EENT Eyes: Present: PERRL, EOM intact - Neck Neck: Present: supple, normal ROM - Respiratory Respiratory effort: normal Respiratory: bilateral: diminished, negative: rales, rhonchi, wheezing - Cardiovascular Rhythm: regular Heart Sounds: Present: S1 & S2 - Extremities Extremities: no ischemia, No edema Extremity abnormal: other (Left-sided weakness) - Abdominal General gastrointestinal: Present: soft, non-tender, non-distended, normal bowel sounds - Integumentary Integumentary: Present: clear, warm - Musculoskeletal Musculoskeletal: left sided weakness - Psychiatric Psychiatric: appropriate mood/affect, cooperative - Neurologic Neurologic: moves all extremities (Acute CVA with left hemiparesis) Plan Activity: advance as tolerated, fall precautions Diet: other (Pured with thin liquids) Special Instructions: physical therapy, occupational therapy Additional Instructions: Fall precautions , aspiration precautions. if you have worsening symptoms contact MD or go to the nearest emergency room as needed. Advised to follow-up with primary care physician, private neurologist per schedule. Seizure precautions. Do not drive or operate heavy missionary until cleared by neurologist Follow up with: PRIMARY MD NOAH [Primary Care Provider] - 3-5 Days ANTHONY WOODALL MD [Staff Physician] - 7 Days Prescriptions: Aspirin [Aspirin BABY CHEW TAB] 81 mg PO QDAY #30 tab.chew levETIRAcetam [Keppra TAB] 750 mg PO BID #60 AtorvaSTATin [Lipitor] 80 mg PO QHS #30 tablet Clopidogrel [Plavix] 75 mg PO QDAY #30 tablet
[2021-11-28 16:48] VITALS: BP 140/96
== END 2021-11-28 16:53 | DRG 65 ==
LOC: ED 09:20 → 4A 11:18
PROVIDERS: ADMIT Internal Medicine; ATTEND Internal Medicine
DX: I63.9 Cerebral infarction, unspecified (principal); E66.2 Morbid (severe) obesity with alveolar hypoventilation; G40.109 Localization-related (focal) (partial) symptomatic epilepsy and epileptic syndromes with simple partial seizures, not intractable, without status epilepticus; E88.81 Metabolic syndrome and other insulin resistance; I10 Essential (primary) hypertension; E11.9 Type 2 diabetes mellitus without complications; E78.5 Hyperlipidemia, unspecified; R56.9 Unspecified convulsions; Z83.3 Family history of diabetes mellitus; Z82.49 Family history of ischemic heart disease and other diseases of the circulatory system; Z68.35 Body mass index [BMI] 35.0-35.9, adult
CPT/HCPCS: 36415; 70450; 70496; 70498; 70551; 71045; 80048; 80053; 80061; 80307; 81001; 82962; 83036; 83880; 84443; 84484; 85025; 85610; 85730; 93005; 93306; 93880; 95819; G0378; J7060; C8929; J1170; J1650; J1953; Q9967; U0003